=== PATIENT | male | born 1965 | race Caucasian/White ===

== ENCOUNTER 2017-06-17 09:47 | Inpatient (IN) | payer MEDICARE, MEDICAID ==
[2017-06-17 10:34] LABS: pH 7.45 (7.35-7.45)
--- NOTE | 2017-06-17 10:39 | ED Physician Chart ---
ED Chief Complaint/HPI - Patient Information Date Seen:: 06/17/17 Time Seen:: 10:00 Chief Complaint:: shortness of breath History of Present Illness:: Patient has been short of breath for last 2 years. He had a runny nose and cough about one month ago. . Patient also complains of diffuse myalgia. He is normally on 2 L of oxygen by nasal cannula. Allergies:: Allergies Allergy/AdvReac Type Severity Reaction Status Date / Time No Known Allergies Allergy Verified 06/17/17 10:05 Vitals:: Vital Signs - 8 hr 06/17/17 09:55 Temp 98.1 F HR 102 RR 18 BP 126/97 O2 Sat % 90 Historian:: Patient Review:: Nurse's Note Reviewed ED Review of Systems - Review of Systems General/Constitutional: No fever, No chills Skin: No skin lesions Head: No headache Eyes: No loss of vision ENT: No earache Neck: No neck pain Cardio Vascular: No chest pain, No palpitations Pulmonary: SOB GI: No nausea, No vomiting, No diarrhea G/U: No dysuria, No hematuria Musculoskeletal: No bone or joint pain Endocrine: No polyuria Psychiatric: Prior psych history Hematopoietic: No bruising Allergic/Immuno: No urticaria Neurological: No syncope, No focal symptoms ED Past Medical History - Past Medical History Past Medical History: Other (schizophrenia) Family History: None Social History: Other (quit smoking about 10 years ago) Surgical History: other (colostomy and colostomy reversal) Psychiatricy History: Schizophrenia Medication: Reviewed Family Medical History - Family Member Mother History Unknown: Yes ED Labs/Radiology/EKG Results - Lab Results Results: Laboratory Results - last 24 hr 06/17/17 06/17/17 10:25 10:52 WBC 8.9 RBC 4.93 Hgb 16.9 Hct 49.3 MCV 100.0 H MCH 34.4 H MCHC Differential 34.3 RDW 12.0 Plt Count 169 MPV 7.2 Neutrophils % 81.4 H Lymphocytes % 12.3 L Monocytes % 5.8 Eosinophils % 0.5 Basophils % 0.0 Specimen Source Arterial Sample Site RB pH 7.45 pCO2 46.0 H pO2 52.0 L HCO3 30.2 H Base Excess 7.0 H O2 Saturation 88.0 L Talib Test NA Vent Rate NA Inspired O2 21 Tidal Volume NA PEEP NA Pressure (ins/psv/peep) NA Critical Value E.CHPAIN - Radiology Results Comments:: Chest x-ray showed COPD; no infiltrate - EKG Interpretations Rate & Rhythm: normal sinus rhythm; rate 81; baseline artifact ED Septic Shock - . Is Septic Shock (SBP<90, OR Lactate>4 mmol\L) present?: No - <6hrs of presentation: Vital Signs: Vital Signs - 8 hr 06/17/17 09:55 Temp 98.1 F HR 102 RR 18 BP 126/97 O2 Sat % 90 ED Reassessment (Disposition) - Reassessment Reassessment Condition:: Unchanged - Diagnosis Diagnosis:: COPD; schizophrenia; hypoxemia - Patient Disposition Admitted to:: Med/Surg Spoke to:: Jatin Wynne Admitting Medical Physician:: Jatin Wynne Condition at Disposition:: Stable, Unchanged
[2017-06-17 11:02] LABS: % EOSINOPHILS 0.5 % (0.0-5.0); % LYMPHOCYTES 12.3 % (20.0-50.0); % MONOCYTES 5.8 % (2.0-10.0); % NEUTROPHILS 81.4 % (40.0-80.0); HEMATOCRIT 49.3 % (41.0-60); HEMOGLOBIN 16.9 gm/dL (12-16); LYMPHOCYTE ABSOLUTE 1.1 Th/cmm (1.5-3.0); MEAN CORPUSCULAR HEMOGLOBIN 34.4 pg (26.0-30.0); MEAN CORPUSCULAR HGB CONC 34.3 pg (28.0-36.0); MEAN PLATELET VOLUME 7.2 fl; MONOCYTE ABSOLUTE 0.5 Th/cmm (0.3-1.0); NEUTROPHILE ABSOLUTE 7.3 Th/cmm (1.8-8.0); PLATELET COUNT 169 Th/cmm (150-400); RED BLOOD COUNT 4.93 Mil/cmm (4.30-5.70); WHITE BLOOD COUNT 8.9 Th/cmm (4.8-10.8)
[2017-06-17 11:18] LABS: ANION GAP 8.8 (7.0-16.0); BUN - UREA NITROGEN 8 mg/dL (7-25); CARBON DIOXIDE 28.8 mEq/L (21.0-31.0); CHLORIDE 102 mEq/L (98-107); CREATININE - SERUM 0.7 mg/dL (0.7-1.3); GFR AFRICAN-AMERICAN > 60.0 ml/min (>90); GFR NON AFRICAN-AMERICAN > 60.0 ml/min; GLUCOSE 94 mg/dL (70-105); MAGNESIUM 2.3 mg/dL (1.9-2.7); POTASSIUM SERUM 4.6 mEq/L (3.5-5.1); SODIUM SERUM 135 mEq/L (136-145)
--- NOTE | 2017-06-17 12:22 | Diagnostic Imaging Report ---
CHEST X-RAY: AP view INDICATION: Shortness of breath COMPARISON: None FINDINGS: Diffuse chronic emphysematous lung changes are seen with increased left basal lung markings. Heart size is normal. No focal consolidation or effusions. Chronic right lower rib fracture is noted. IMPRESSION: Diffuse chronic emphysematous lung changes. Increased left basal lung markings are seen favoring area of atelectasis or scarring. Faint infiltrate is considered less likely. Please correlate with patient's clinical findings.
[2017-06-17] MEDS ORDERED: Acetaminophen 500 MG TAB PO ONE (12:45)
[2017-06-17] MEDS ORDERED: Acetaminophen 500 MG TAB ONE (13:01)
[2017-06-17] MEDS: Albuterol/Ipratropium Neb 3 ML AERS HHN SCH ×2 (15:09→19:31)
[2017-06-17] MEDS ORDERED: Pneumococcal Vaccine 0.5 mL Vial IM ONE (17:19)
[2017-06-17] MEDS ORDERED: Albuterol/Ipratropium Neb 3 ML AERS HHN PRN (20:09)
[2017-06-17] MEDS: methylPREDNISolone SS 40 mg Vial IV SCH (23:07)
[2017-06-17] MEDS: Levofloxacin 500mg/100mL 500 MG/100 ML BAG IV SCH (23:13)
--- NOTE | 2017-06-17 23:19 | History & Physical ---
ADMIT DATE: PATIENT IDENTIFICATION: A 52-year-old male. CHIEF COMPLAINT: Shortness of breath. HISTORY OF PRESENT ILLNESS: A 52-year-old male with history of COPD, bronchiectasis, history of psychotic disorder, still smokes, presented to Emergency Room for evaluation of shortness of breath for last one week. The patient was recently seen by Emergency Room MD at [facility]. The patient was given prednisone and inhalation therapy and antibiotic, but according to the patient, he did not get better, continuation of worsening shortness of breath, so he came to this Emergency Room. When the patient was by Emergency Room MD, patient was noted to have low pO2 and elevated CO2. The patient was advised to be admitted to the hospital for further treatment since the patient has failed outpatient treatment. PAST MEDICAL HISTORY: Remarkable for, 1. COPD. 2. Bronchiectasis. 3. DJD. MEDICATIONS: List has been reviewed and reconciled appropriately. ALLERGIES: The patient is not allergic to medication. SOCIAL HISTORY: The patient lives in [facility]. The patient has a history of smoking cigarette. No alcohol or drug use. FAMILY MEDICAL HISTORY: Remarkable for hypertension. REVIEW OF SYSTEMS: The patient currently denies any headache, blurred vision, double vision, dysphagia, odynophagia, runny nose, stuffy nose, fever, chills, cough. Denies any hematemesis. Denies any abdominal pain. Denies any seizure or syncopal episode. Denies any weight loss or weight gain. PHYSICAL EXAMINATION: GENERAL: Alert, oriented, lying in the bed without any acute distress. VITAL SIGNS: Temperature 98.1, pulse is 102, respiratory rate 20, blood pressure 126/97. HEENT: Normocephalic, atraumatic. Extraocular muscles intact. Tongue was pink and coated. Oropharynx is congested. Nasal mucosa congested. NECK: Supple. No JVD, no hepatojugular reflex, no lymphadenopathy, thyromegaly, or carotid bruit. HEART: Both heart sounds are regular. No S3, no S4. CHEST AND LUNGS: Equal in expansion with expiratory wheezing throughout. ABDOMEN: Soft. No guarding, no rigidity. Liver, spleen palpable. No palpable mass. EXTREMITIES: No edema, cyanosis or clubbing. Pulses are +2. No calf tenderness noted. NEUROLOGIC: Nonfocal. AVAILABLE DIAGNOSTIC DATA: Remarkable for pH of 7.45, pCO2 of 46, pO2 of 52, of 88%. White count of 8.9, hemoglobin 16.9, platelet count of 169. Electrolytes are within normal limit. Magnesium of 2.3. Chest x-ray, no infiltrate, no congestion. CLINICAL IMPRESSION: 1. Acute respiratory failure. 2. Chronic obstructive pulmonary disease exacerbation. 3. Bronchiectasis. 4. Psychotic disorder. PLAN: 1. Admit this patient to Med/Surg floor. 2. Oxygen. 3. IV steroid. 4. IV antibiotic. 5. Inhalation therapy. 6. Appropriate home medicine reconciliation. 7. General Pulmonary consult. 8. General nursing care. 9. Follow lab. 10. Follow management consultant's recommendation. 11. 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 JOB# [id number]
[2017-06-18] MEDS: Albuterol/Ipratropium Neb 3 ML AERS HHN SCH ×4 (01:00→19:41)
[2017-06-18] MEDS: Hydrocodone/APAP 5mg/325mg Tab PO PRN ×3 (02:02→20:51)
[2017-06-18] MEDS: methylPREDNISolone SS 40 mg Vial IV SCH ×3 (04:40→20:50)
[2017-06-18 05:31] LABS: HEMATOCRIT 45.4 % (41.0-60); HEMOGLOBIN 15.6 gm/dL (12-16); LYMPHOCYTE ABSOLUTE 0.4 Th/cmm (1.5-3.0); MEAN CELL VOLUME 100.2 fl (80-99); MEAN CORPUSCULAR HEMOGLOBIN 34.3 pg (26.0-30.0); MEAN CORPUSCULAR HGB CONC 34.3 pg (28.0-36.0); MEAN PLATELET VOLUME 7.7 fl; MONOCYTE ABSOLUTE 0.1 Th/cmm (0.3-1.0); NEUTROPHILE ABSOLUTE 5.6 Th/cmm (1.8-8.0); PLATELET COUNT 139 Th/cmm (150-400); RED BLOOD COUNT 4.53 Mil/cmm (4.30-5.70); RED CELL DISTRIBUTION WIDTH 12.5 % (11.5-20.0)
[2017-06-18 05:33] LABS: WHITE BLOOD COUNT 6.1 Th/cmm (4.8-10.8)
[2017-06-18 05:51] LABS: ALB/GLOB RATIO 1.4 (1.0-1.8); ALBUMIN 3.6 gm/dL (4.2-5.5); ALKALINE PHOSPHATASE 56 U/L (34-104); ANION GAP 10.3 (7.0-16.0); BILIRUBIN,TOTAL 0.7 mg/dL (0.3-1.0); BUN - UREA NITROGEN 13 mg/dL (7-25); CALCIUM SERUM 9.3 mg/dL (8.6-10.3); CARBON DIOXIDE 28.2 mEq/L (21.0-31.0); CHLORIDE 105 mEq/L (98-107); CREATININE - SERUM 0.8 mg/dL (0.7-1.3); GFR AFRICAN-AMERICAN > 60.0 ml/min (>90); GFR NON AFRICAN-AMERICAN > 60.0 ml/min; GLUCOSE 126 mg/dL (70-105); POTASSIUM SERUM 4.5 mEq/L (3.5-5.1); SGOT 25 U/L (13-39); SGPT/ALT 20 U/L (7-52); SODIUM SERUM 139 mEq/L (136-145); TOTAL PROTEIN,SERUM 6.1 gm/dL (6.0-8.3)
[2017-06-18] MEDS: Benztropine 1 MG TAB PO SCH ×2 (09:21→16:32)
--- NOTE | 2017-06-18 18:41 | General Progress Note ---
Subjective - Review of Systems Subjective: Patient is seen and examined. Patient still has a cough and shortness of breath. Patient denies any chest pain, abdominal pain, nausea, vomiting, headache. Objective - Results Result Diagrams: 06/18/17 04:50 06/18/17 04:50 Recent Labs: Laboratory Last Values WBC 6.1 Th/cmm (4.8-10.8) D 06/18/17 04:50 RBC 4.53 Mil/cmm (4.30-5.70) 06/18/17 04:50 Hgb 15.6 gm/dL (-16) 06/18/17 04:50 Hct 45.4 % (41.0-60) 06/18/17 04:50 MCV 100.2 fl (80-99) H 06/18/17 04:50 MCH 34.3 pg (26.0-30.0) H 06/18/17 04:50 MCHC Differential 34.3 pg (28.0-36.0) 06/18/17 04:50 RDW 12.5 % (11.5-20.0) 06/18/17 04:50 Plt Count 139 Th/cmm (150-400) L 06/18/17 04:50 MPV 7.7 fl 06/18/17 04:50 Neutrophils % 81.4 % (40.0-80.0) H 06/17/17 10:52 Lymphocytes % 12.3 % (20.0-50.0) L 06/17/17 10:52 Monocytes % 5.8 % (2.0-10.0) 06/17/17 10:52 Eosinophils % 0.5 % (0.0-5.0) 06/17/17 10:52 Basophils % 0.0 % (0.0-2.0) 06/17/17 10:52 Specimen Source Arterial 06/17/17 10:25 Sample Site RB 06/17/17 10:25 pH 7.45 (7.35-7.45) 06/17/17 10:25 pCO2 46.0 mmHg (35.0-45.0) H 06/17/17 10:25 pO2 52.0 mmHg (80.0-100.0) L 06/17/17 10:25 HCO3 30.2 mEq/L (20.0-26.0) H 06/17/17 10:25 Base Excess 7.0 mEq/L (-3.0-3.0) H 06/17/17 10:25 O2 Saturation 88.0 % (92.0-100.0) L 06/17/17 10:25 Talib Test NA 06/17/17 10:25 Vent Rate NA 06/17/17 10:25 Inspired O2 21 06/17/17 10:25 Tidal Volume NA 06/17/17 10:25 PEEP NA 06/17/17 10:25 Pressure (ins/psv/peep) NA 06/17/17 10:25 Critical Value E.CHAPIN 06/17/17 10:25 Sodium 139 mEq/L (136-145) 06/18/17 04:50 Potassium 4.5 mEq/L (3.5-5.1) 06/18/17 04:50 Chloride 105 mEq/L (98-107) 06/18/17 04:50 Carbon Dioxide 28.2 mEq/L (21.0-31.0) 06/18/17 04:50 Anion Gap 10.3 (7.0-16.0) 06/18/17 04:50 BUN 13 mg/dL (7-25) 06/18/17 04:50 Creatinine 0.8 mg/dL (0.7-1.3) 06/18/17 04:50 Est GFR ( Amer) > 60.0 ml/min (>90) 06/18/17 04:50 Est GFR (Non-Af Amer) > 60.0 ml/min 06/18/17 04:50 BUN/Creatinine Ratio 16.3 06/18/17 04:50 Glucose 126 mg/dL (70-105) H 06/18/17 04:50 Calcium 9.3 mg/dL (8.6-10.3) 06/18/17 04:50 Magnesium 2.0 mg/dL (1.9-2.7) 06/18/17 04:50 Total Bilirubin 0.7 mg/dL (0.3-1.0) 06/18/17 04:50 AST 25 U/L (13-39) 06/18/17 04:50 ALT 20 U/L (7-52) 06/18/17 04:50 Alkaline Phosphatase 56 U/L (34-104) 06/18/17 04:50 Total Protein 6.1 gm/dL (6.0-8.3) 06/18/17 04:50 Albumin 3.6 gm/dL (4.2-5.5) L 06/18/17 04:50 Globulin 2.5 gm/dL 06/18/17 04:50 Albumin/Globulin Ratio 1.4 (1.0-1.8) 06/18/17 04:50 - Physical Exam Vitals and I&O: Vital Signs Temp 98.6 F 06/18/17 16:00 Pulse 79 06/18/17 16:00 Resp 20 06/18/17 16:00 BP 116/68 06/18/17 16:00 Pulse Ox 99 06/18/17 16:00 Intake & Output 06/17/17 06/18/17 06/18/17 18:59 06:59 18:59 Intake Total 600 Balance 600 Weight (lbs) 102.512 kg 102.512 kg Intake: Oral 600 Other: # Voids 4 # Bowel Movements 0 Active Medications: Current Medications Acetaminophen/Hydrocodone Bitart ([place] 5mg/325mg) 1 tab PO Q6H PRN PRN Reason: Pain (Moderate) Stop: 08/17/17 00:57 Last Admin: 06/18/17 12:36 Dose: 1 tab Albuterol/Ipratropium (Duoneb Neb) 3 ml HHN Q6HRT [facility] Stop: 08/16/17 13:32 Last Admin: 06/18/17 12:31 Dose: 3 ml Albuterol/Ipratropium (Duoneb Neb) 3 ml HHN Q2H PRN PRN Reason: Wheezing Stop: 08/16/17 20:08 Aspirin (Ecotrin) 81 mg PO DAILY MI Stop: 08/17/17 08:59 Last Admin: 06/18/17 09:21 Dose: 81 mg Benztropine Mesylate (Cogentin) 1 mg PO BID MI Stop: 08/17/17 08:59 Last Admin: 06/18/17 16:32 Dose: 1 mg Diphenhydramine HCl (Benadryl) 25 mg PO HS MI Stop: 08/16/17 20:59 Last Admin: 06/17/17 23:09 Dose: 25 mg Levofloxacin (Levaquin Pb) 500 mg in 100 mls @ 100 mls/hr IV Q24HR MI Stop: 08/16/17 20:59 Last Admin: 06/17/17 23:13 Dose: 100 mls/hr Methylprednisolone Sodium Succinate (Solu-Medrol) 40 mg IV Q8HR MI Stop: 08/16/17 20:59 Last Admin: 06/18/17 12:36 Dose: 40 mg Olanzapine (Zyprexa) 20 mg PO HS MI PRN Reason: Protocol Stop: 08/16/17 20:59 Thiothixene (Navane) 5 mg PO BID MI PRN Reason: Protocol Stop: 08/17/17 08:59 General: Alert, Oriented x3, Cooperative HEENT: Atraumatic, PERRLA, EOMI, Mucous membr. moist/pink Neck: Supple, +2 carotid pulse wo bruit Cardiovascular: Regular rate, Normal S1, Normal S2 Lungs: Other (diffuse expiratory wheezing throughout.) Abdomen: Bowel sounds, Soft, Other (no hepatosplenomegaly, bowel sounds present) Extremities: Other (no clubbing, cyanosis, pedal pulses are +2.) Neurological: Normal gait Assessment/Plan - Assessment Assessment: COPD exacerbation. Acute respiratory failure. Bronchiectasis. Psychiatric disorder. DJD. Debility. - Plan Plan: Oxygen. Nebulizer treatment. IV antibiotic. IV steroid. General nursing care. Pulmonary follow-up. Psych medication. Nutritional support. PTOT. Follow lab. Follow corporate health consultant's recommendation. Care plan reviewed and discussed with staff.
[2017-06-18] MEDS: Levofloxacin 500mg/100mL 500 MG/100 ML BAG IV SCH (20:49)
[2017-06-19] MEDS: Albuterol/Ipratropium Neb 3 ML AERS HHN SCH ×4 (01:16→20:06)
[2017-06-19] MEDS: methylPREDNISolone SS 40 mg Vial IV SCH ×3 (05:19→22:07)
[2017-06-19] MEDS: Benztropine 1 MG TAB PO SCH ×2 (09:03→17:05)
[2017-06-19] MEDS: Hydrocodone/APAP 5mg/325mg Tab PO PRN ×2 (09:55→17:05)
[2017-06-19] MEDS ORDERED: Probiotic Screen MC PRN (12:11)
--- NOTE | 2017-06-19 16:02 | General Progress Note ---
Subjective - Review of Systems Subjective: Patient is seen and examined. Patient says I feel better today. Patient denies any chest pain, abdominal pain, nausea, vomiting, headache. Objective - Results Result Diagrams: 06/18/17 04:50 06/18/17 04:50 Recent Labs: Laboratory Last Values WBC 6.1 Th/cmm (4.8-10.8) D 06/18/17 04:50 RBC 4.53 Mil/cmm (4.30-5.70) 06/18/17 04:50 Hgb 15.6 gm/dL (-16) 06/18/17 04:50 Hct 45.4 % (41.0-60) 06/18/17 04:50 MCV 100.2 fl (80-99) H 06/18/17 04:50 MCH 34.3 pg (26.0-30.0) H 06/18/17 04:50 MCHC Differential 34.3 pg (28.0-36.0) 06/18/17 04:50 RDW 12.5 % (11.5-20.0) 06/18/17 04:50 Plt Count 139 Th/cmm (150-400) L 06/18/17 04:50 MPV 7.7 fl 06/18/17 04:50 Neutrophils % 81.4 % (40.0-80.0) H 06/17/17 10:52 Lymphocytes % 12.3 % (20.0-50.0) L 06/17/17 10:52 Monocytes % 5.8 % (2.0-10.0) 06/17/17 10:52 Eosinophils % 0.5 % (0.0-5.0) 06/17/17 10:52 Basophils % 0.0 % (0.0-2.0) 06/17/17 10:52 Specimen Source Arterial 06/17/17 10:25 Sample Site RB 06/17/17 10:25 pH 7.45 (7.35-7.45) 06/17/17 10:25 pCO2 46.0 mmHg (35.0-45.0) H 06/17/17 10:25 pO2 52.0 mmHg (80.0-100.0) L 06/17/17 10:25 HCO3 30.2 mEq/L (20.0-26.0) H 06/17/17 10:25 Base Excess 7.0 mEq/L (-3.0-3.0) H 06/17/17 10:25 O2 Saturation 88.0 % (92.0-100.0) L 06/17/17 10:25 Talib Test NA 06/17/17 10:25 Vent Rate NA 06/17/17 10:25 Inspired O2 21 06/17/17 10:25 Tidal Volume NA 06/17/17 10:25 PEEP NA 06/17/17 10:25 Pressure (ins/psv/peep) NA 06/17/17 10:25 Critical Value E.CHAPIN 06/17/17 10:25 Sodium 139 mEq/L (136-145) 06/18/17 04:50 Potassium 4.5 mEq/L (3.5-5.1) 06/18/17 04:50 Chloride 105 mEq/L (98-107) 06/18/17 04:50 Carbon Dioxide 28.2 mEq/L (21.0-31.0) 06/18/17 04:50 Anion Gap 10.3 (7.0-16.0) 06/18/17 04:50 BUN 13 mg/dL (7-25) 06/18/17 04:50 Creatinine 0.8 mg/dL (0.7-1.3) 06/18/17 04:50 Est GFR ( Amer) > 60.0 ml/min (>90) 06/18/17 04:50 Est GFR (Non-Af Amer) > 60.0 ml/min 06/18/17 04:50 BUN/Creatinine Ratio 16.3 06/18/17 04:50 Glucose 126 mg/dL (70-105) H 06/18/17 04:50 Calcium 9.3 mg/dL (8.6-10.3) 06/18/17 04:50 Magnesium 2.0 mg/dL (1.9-2.7) 06/18/17 04:50 Total Bilirubin 0.7 mg/dL (0.3-1.0) 06/18/17 04:50 AST 25 U/L (13-39) 06/18/17 04:50 ALT 20 U/L (7-52) 06/18/17 04:50 Alkaline Phosphatase 56 U/L (34-104) 06/18/17 04:50 Total Protein 6.1 gm/dL (6.0-8.3) 06/18/17 04:50 Albumin 3.6 gm/dL (4.2-5.5) L 06/18/17 04:50 Globulin 2.5 gm/dL 06/18/17 04:50 Albumin/Globulin Ratio 1.4 (1.0-1.8) 06/18/17 04:50 - Physical Exam Vitals and I&O: Vital Signs Temp 98.7 F 06/19/17 15:39 Pulse 71 06/19/17 15:39 Resp 18 06/19/17 15:39 BP 106/64 06/19/17 15:39 Pulse Ox 91 06/19/17 15:39 Intake & Output 06/18/17 06/19/17 06/19/17 18:59 06:59 18:59 Intake Total 600 660 Balance 600 660 Weight (lbs) 102.512 kg 102.512 kg Intake: Intake, IV Amount 100 Levofloxacin 500mg/100mL 100 500 mg In 100 ml @ 100 mls/hr IV Q24HR [facility] Rx#: [id number] Oral 600 560 Other: # Voids 4 850 # Bowel Movements 0 Active Medications: Current Medications Acetaminophen/Hydrocodone Bitart ([place] 5mg/325mg) 1 tab PO Q6H PRN PRN Reason: Pain (Moderate) Stop: 08/17/17 00:57 Last Admin: 06/19/17 09:55 Dose: 1 tab Albuterol/Ipratropium (Duoneb Neb) 3 ml HHN Q6HRT [facility] Stop: 08/16/17 13:32 Last Admin: 06/19/17 12:59 Dose: 3 ml Albuterol/Ipratropium (Duoneb Neb) 3 ml HHN Q2H PRN PRN Reason: Wheezing Stop: 08/16/17 20:08 Aspirin (Ecotrin) 81 mg PO DAILY [facility] Stop: 08/17/17 08:59 Last Admin: 06/19/17 09:03 Dose: 81 mg Benztropine Mesylate (Cogentin) 1 mg PO BID MI Stop: 08/17/17 08:59 Last Admin: 06/19/17 09:03 Dose: 1 mg Diphenhydramine HCl (Benadryl) 25 mg PO HS [facility] Stop: 08/16/17 20:59 Last Admin: 06/18/17 20:51 Dose: 25 mg Levofloxacin (Levaquin Pb) 500 mg in 100 mls @ 100 mls/hr IV Q24HR MI Stop: 08/16/17 20:59 Last Infusion: 06/18/17 21:49 Dose: Infused Methylprednisolone Sodium Succinate (Solu-Medrol) 40 mg IV Q8HR MI Stop: 08/16/17 20:59 Last Admin: 06/19/17 14:10 Dose: 40 mg Miscellaneous (Probiotic Screen) 1 ea MC PRN PRN PRN Reason: PROTOCOL Stop: 08/18/17 12:10 Olanzapine (Zyprexa) 20 mg PO HS MI PRN Reason: Protocol Stop: 08/16/17 20:59 Thiothixene (Navane) 15 mg PO BID MI PRN Reason: Protocol Stop: 08/17/17 08:59 Last Admin: 06/19/17 09:56 Dose: Not Given General: Alert, Oriented x3, Cooperative HEENT: Atraumatic, PERRLA, EOMI, Mucous membr. moist/pink Neck: Supple, +2 carotid pulse wo bruit Cardiovascular: Regular rate, Normal S1, Normal S2 Lungs: Other (diffuse expiratory wheezing throughout.) Abdomen: Bowel sounds, Soft, Other (no hepatosplenomegaly, bowel sounds present) Extremities: Other (no clubbing, cyanosis, pedal pulses are +2.) Neurological: Normal gait Assessment/Plan - Assessment Assessment: COPD exacerbation. Acute respiratory failure. Bronchiectasis. Psychiatric disorder. DJD. Debility. - Plan Plan: Oxygen. Nebulizer treatment. IV antibiotic. Decrease IV steroid. General nursing care. Pulmonary follow-up. Psych medication. Nutritional support. PT. Follow lab. Follow devops consultant's recommendation. Care plan reviewed and discussed with staff.
[2017-06-19] MEDS: Pantoprazole 40 mg EC Tab PO SCH (18:12)
[2017-06-19 19:56] LABS: INF A SCREEN NEG FOR INF A; INF B SCREEN NEG FOR INF B
[2017-06-19] MEDS: Budesonide 0.5 Mg/2 mL Ud HHN SCH (20:06)
--- NOTE | 2017-06-19 20:42 | Consultation ---
DATE OF CONSULTATION: 06/19/2017 PULMONARY AND CRITICAL CARE CONSULTATION NOTE REASON FOR CONSULTATION: Shortness of breath. CONSULT NOTE: This is a 52-year-old gentleman who has multiple psychiatric illness as well as under multiple psychotropic medications. The patient was basically admitted here because of increasingly shortness of breath, coughing, and wheezing and lasted a few days prior to coming to the hospital. Initially, he has been to the other Emergency Room and the patient was given prednisone. As the patient's symptomatology continued and did not get better, he decided to come to the Emergency Room. The patient has some cough, some wheezing, and some mucus production discolored. No pleuritic chest pain, no swelling of the legs, otherwise unremarkable. The patient says he is not smoking since last 6 months. PAST MEDICAL HISTORY: 1. History of COPD. 2. History of question bronchiectasis. 3. DJD. 4. Possibly to underlying psychiatric illness. ALLERGIC HISTORY: Nil. SOCIAL HISTORY: The patient lives in [facility] and claims to have stopped smoking. Denies of any illicit drug use. PHYSICAL EXAMINATION: GENERAL: This is a tall looking gentleman, awake, alert, oriented, not in any acute distress. VITAL SIGNS: The patient's recorded vitals: Temperature is 98, blood pressure is 111/67, and saturation is 90s on 2 liters. HEENT: Examination of the head is essentially unremarkable. Pupils appear to be equal and reactive to light. Conjunctivae are slightly pallor. Oral cavity, limited exam, but unremarkable and appreciative partial dental plate. Throat shows small oropharyngeal opening. NECK: Unremarkable. No palpable nodes in the neck could be palpated. CHEST: Shows diminished air entry with scattered wheezing. HEART: Regular. ABDOMEN: Soft, nontender. DIAGNOSTIC AND LABORATORY DATA: The patient's chest x-ray shows some interstitial changes with left basal scarring versus questionable pneumonia. White count is 8.1. MCV is 100. ABG shows pCO2 of 46, pO2 is 52 on room air. Electrolytes are okay. IMPRESSION: 1. The patient has acute exacerbation of chronic bronchitis with chronic obstructive pulmonary disease. Precipitating factor is not clear, possibly viral and/or bacterial cannot be ruled out. 2. Underlying history of smoking. According to him, has not smoked for last 6 months and also the patient is mentally challenged issues with disability. PLANS AND SUGGESTIONS: We will go ahead and continue antibiotic inhalation treatment. We will recheck out influenza titer. We will add inhale steroid. We will get a CT of the chest for better evaluation of his disease and go from there and we will followup blood gases as well. JOB# [id number]
[2017-06-19] MEDS: Levofloxacin 500mg/100mL 500 MG/100 ML BAG IV SCH (22:06)
[2017-06-20 05:36] LABS: % BASOPHILS 2.2 % (0.0-2.0); % LYMPHOCYTES 6.6 % (20.0-50.0); % MONOCYTES 2.8 % (2.0-10.0); % NEUTROPHILS 88.4 % (40.0-80.0); BASOPHILE ABSOLUTE 0.2 Th/cumm (0-0.2); HEMATOCRIT 49.1 % (41.0-60); HEMOGLOBIN 16.7 gm/dL (12-16); LYMPHOCYTE ABSOLUTE 0.6 Th/cmm (1.5-3.0); MEAN CORPUSCULAR HEMOGLOBIN 34.3 pg (26.0-30.0); MEAN CORPUSCULAR HGB CONC 33.9 pg (28.0-36.0); MEAN PLATELET VOLUME 7.6 fl; MONOCYTE ABSOLUTE 0.3 Th/cmm (0.3-1.0); NEUTROPHILE ABSOLUTE 8.2 Th/cmm (1.8-8.0); PLATELET COUNT 149 Th/cmm (150-400); RED BLOOD COUNT 4.86 Mil/cmm (4.30-5.70); RED CELL DISTRIBUTION WIDTH 12.5 % (11.5-20.0)
[2017-06-20 05:38] LABS: WHITE BLOOD COUNT 9.3 Th/cmm (4.8-10.8)
[2017-06-20] MEDS: Hydrocodone/APAP 5mg/325mg Tab PO PRN ×3 (05:55→22:42)
[2017-06-20 06:50] LABS: ALB/GLOB RATIO 1.4 (1.0-1.8); ALBUMIN 3.6 gm/dL (4.2-5.5); ALKALINE PHOSPHATASE 57 U/L (34-104); ANION GAP 9.9 (7.0-16.0); BILIRUBIN,TOTAL 0.7 mg/dL (0.3-1.0); BUN - UREA NITROGEN 16 mg/dL (7-25); CALCIUM SERUM 9.3 mg/dL (8.6-10.3); CARBON DIOXIDE 26.5 mEq/L (21.0-31.0); CHLORIDE 103 mEq/L (98-107); CREATININE - SERUM 0.7 mg/dL (0.7-1.3); GFR AFRICAN-AMERICAN > 60.0 ml/min (>90); GFR NON AFRICAN-AMERICAN > 60.0 ml/min; GLUCOSE 141 mg/dL (70-105); POTASSIUM SERUM 4.4 mEq/L (3.5-5.1); SGOT 20 U/L (13-39); SGPT/ALT 22 U/L (7-52); SODIUM SERUM 135 mEq/L (136-145); TOTAL PROTEIN,SERUM 6.2 gm/dL (6.0-8.3)
[2017-06-20] MEDS: Albuterol/Ipratropium Neb 3 ML AERS HHN SCH ×4 (07:44→19:07)
[2017-06-20] MEDS: Budesonide 0.5 Mg/2 mL Ud HHN SCH ×2 (07:44→19:07)
[2017-06-20] MEDS: methylPREDNISolone SS 40 mg Vial IV SCH ×2 (09:15→17:14)
[2017-06-20] MEDS: Benztropine 1 MG TAB PO SCH ×2 (09:15→17:14)
[2017-06-20] MEDS: Pantoprazole 40 mg EC Tab PO SCH (09:15)
[2017-06-20 09:17] LABS: ALLEN TEST Positive; pH 7.41 (7.35-7.45)
--- NOTE | 2017-06-20 10:00 | Diagnostic Imaging Report ---
CT Chest without IV contrast HISTORY: COPD, fibrosis, pneumonia COMPARISON: Chest x-ray on 06/17/2017. Technique: Axial images were obtained from the base of the neck to the upper abdomen without IV contrast. Reconstructions were made. Total DLP 3:30, CTD I 6.9 Findings: Evaluation of the mediastinum is limited due to lack of IV contrast. No evidence of mediastinal lymphadenopathy. The heart size is normal. Mild atelectatic vascular disease noted. No pericardial effusion. Hyperinflated lungs are seen with diffuse emphysematous changes throughout the lungs. Linear densities of the lung bases are seen suggestive of atelectatic changes. Additional right basal patchy infiltrates are noted. There is also 8 mm nodular density involving the left lower lobe (image 41, series 2 and image 79, series 5). There is also an additional fat density with focal consolidative change of the left lung base. The upper abdomen demonstrates a distended stomach. Calcifications versus postsurgical changes of the left upper quadrant are noted. Mild degenerative changes of the spine are noted. IMPRESSION: Hyperinflated lungs with diffuse emphysematous changes throughout the lungs. Right basal infiltrates are also noted. Nodular infiltrates of the lung bases are noted including 8 mm nodule of the left lower lobe which may be due to infectious/inflammatory or neoplastic process. Please correlate with findings of normal exams. Short-term follow-up CT surveillance in 3-6 months is recommended for further assessment. Additional focal area of fat possible fat diaphragmatic herniation with focal consolidative changes of the left lung base. Mild atherosclerotic vascular disease.
--- NOTE | 2017-06-20 17:08 | General Progress Note ---
Subjective - Review of Systems Subjective: Patient is seen and examined.Patient denies any chest pain, abdominal pain, nausea, vomiting, headache. Objective - Results Result Diagrams: 06/20/17 04:53 06/20/17 04:53 Recent Labs: Laboratory Last Values WBC 9.3 Th/cmm (4.8-10.8) D 06/20/17 04:53 RBC 4.86 Mil/cmm (4.30-5.70) 06/20/17 04:53 Hgb 16.7 gm/dL (12-16) 06/20/17 04:53 Hct 49.1 % (41.0-60) 06/20/17 04:53 MCV 101.0 fl (80-99) H 06/20/17 04:53 MCH 34.3 pg (26.0-30.0) H 06/20/17 04:53 MCHC Differential 33.9 pg (28.0-36.0) 06/20/17 04:53 RDW 12.5 % (11.5-20.0) 06/20/17 04:53 Plt Count 149 Th/cmm (150-400) L 06/20/17 04:53 MPV 7.6 fl 06/20/17 04:53 Neutrophils % 88.4 % (40.0-80.0) H 06/20/17 04:53 Lymphocytes % 6.6 % (20.0-50.0) L 06/20/17 04:53 Monocytes % 2.8 % (2.0-10.0) 06/20/17 04:53 Eosinophils % 0.0 % (0.0-5.0) 06/20/17 04:53 Basophils % 2.2 % (0.0-2.0) H 06/20/17 04:53 Specimen Source Arterial 06/20/17 09:03 Sample Site Left Radial 06/20/17 09:03 pH 7.41 (7.35-7.45) 06/20/17 09:03 pCO2 47.0 mmHg (35.0-45.0) H 06/20/17 09:03 pO2 53.0 mmHg (80.0-100.0) L 06/20/17 09:03 HCO3 28.0 mEq/L (20.0-26.0) H 06/20/17 09:03 Base Excess 4.3 mEq/L (-3.0-3.0) H 06/20/17 09:03 O2 Saturation 87.0 % (92.0-100.0) L 06/20/17 09:03 Talib Test Positive 06/20/17 09:03 Vent Rate NA 06/20/17 09:03 Inspired O2 21 06/20/17 09:03 Tidal Volume NA 06/20/17 09:03 PEEP NA 06/20/17 09:03 Pressure (ins/psv/peep) NA 06/20/17 09:03 Critical Value LZHANG 06/20/17 09:03 Sodium 135 mEq/L (136-145) L 06/20/17 04:53 Potassium 4.4 mEq/L (3.5-5.1) 06/20/17 04:53 Chloride 103 mEq/L (98-107) 06/20/17 04:53 Carbon Dioxide 26.5 mEq/L (21.0-31.0) 06/20/17 04:53 Anion Gap 9.9 (7.0-16.0) 06/20/17 04:53 BUN 16 mg/dL (7-25) 06/20/17 04:53 Creatinine 0.7 mg/dL (0.7-1.3) 06/20/17 04:53 Est GFR ( Amer) > 60.0 ml/min (>90) 06/20/17 04:53 Est GFR (Non-Af Amer) > 60.0 ml/min 06/20/17 04:53 BUN/Creatinine Ratio 22.9 06/20/17 04:53 Glucose 141 mg/dL (70-105) H 06/20/17 04:53 Calcium 9.3 mg/dL (8.6-10.3) 06/20/17 04:53 Magnesium 2.0 mg/dL (1.9-2.7) 06/18/17 04:50 Total Bilirubin 0.7 mg/dL (0.3-1.0) 06/20/17 04:53 AST 20 U/L (13-39) 06/20/17 04:53 ALT 22 U/L (7-52) 06/20/17 04:53 Alkaline Phosphatase 57 U/L (34-104) 06/20/17 04:53 Total Protein 6.2 gm/dL (6.0-8.3) 06/20/17 04:53 Albumin 3.6 gm/dL (4.2-5.5) L 06/20/17 04:53 Globulin 2.6 gm/dL 06/20/17 04:53 Albumin/Globulin Ratio 1.4 (1.0-1.8) 06/20/17 04:53 Influenza A (Rapid) NEG FOR INF A 06/19/17 17:00 Influenza B (Rapid) NEG FOR INF B 06/19/17 17:00 - Physical Exam Vitals and I&O: Vital Signs Temp 98.8 F 06/20/17 16:00 Pulse 67 06/20/17 16:00 Resp 18 06/20/17 16:00 BP 116/81 06/20/17 16:00 Pulse Ox 92 06/20/17 16:00 Intake & Output 06/19/17 06/20/17 06/20/17 18:59 06:59 18:59 Intake Total 1200 350 250 Output Total 1300 Balance -100 350 250 Weight (lbs) 102.512 kg 101.242 kg 110.223 kg Intake: Intake, IV Amount 100 Levofloxacin 500mg/100mL 100 500 mg In 100 ml @ 100 mls/hr IV Q24HR [facility] Rx#: [id number] Oral 1200 250 250 Output: Urine 1300 Other: # Voids 2 # Bowel Movements 0 0 Active Medications: Current Medications Acetaminophen/Hydrocodone Bitart ([place] 5mg/325mg) 1 tab PO Q6H PRN PRN Reason: Pain (Moderate) Stop: 08/17/17 00:57 Last Admin: 06/20/17 12:37 Dose: 1 tab Albuterol/Ipratropium (Duoneb Neb) 3 ml HHN Q2H PRN PRN Reason: Wheezing Stop: 08/16/17 20:08 Albuterol/Ipratropium (Duoneb Neb) 3 ml HHN [id number] [facility] Stop: 08/18/17 18:59 Last Admin: 06/20/17 15:25 Dose: 3 ml Aspirin (Ecotrin) 81 mg PO DAILY [facility] Stop: 08/17/17 08:59 Last Admin: 06/20/17 09:15 Dose: 81 mg Benztropine Mesylate (Cogentin) 1 mg PO BID [facility] Stop: 08/17/17 08:59 Last Admin: 06/20/17 09:15 Dose: 1 mg Budesonide (Pulmicort) 0.5 mg HHN BIDRT MI Stop: 08/18/17 18:59 Last Admin: 06/20/17 07:44 Dose: 0.5 mg Diphenhydramine HCl (Benadryl) 25 mg PO HS MI Stop: 08/16/17 20:59 Last Admin: 06/19/17 22:06 Dose: 25 mg Levofloxacin (Levaquin Pb) 500 mg in 100 mls @ 100 mls/hr IV Q24HR MI Stop: 08/16/17 20:59 Last Infusion: 06/19/17 23:06 Dose: Infused Methylprednisolone Sodium Succinate (Solu-Medrol) 40 mg IV BID MI Stop: 08/18/17 20:59 Last Admin: 06/20/17 09:15 Dose: 40 mg Miscellaneous (Probiotic Screen) 1 ea MC PRN PRN PRN Reason: PROTOCOL Stop: 08/18/17 12:10 Olanzapine (Zyprexa) 20 mg PO HS MI PRN Reason: Protocol Stop: 08/16/17 20:59 Last Admin: 06/19/17 22:06 Dose: 20 mg Pantoprazole Sodium (Protonix) 40 mg PO DAILY [facility] Stop: 08/18/17 17:14 Last Admin: 06/20/17 09:15 Dose: 40 mg Thiothixene (Navane) 15 mg PO BID MI PRN Reason: Protocol Stop: 08/17/17 08:59 Last Admin: 06/20/17 16:59 Dose: Not Given General: Alert, Oriented x3, Cooperative HEENT: Atraumatic, PERRLA, EOMI, Mucous membr. moist/pink Neck: Supple, +2 carotid pulse wo bruit Cardiovascular: Regular rate, Normal S1, Normal S2 Lungs: Other (diffuse expiratory wheezing throughout.) Abdomen: Bowel sounds, Soft, Other (no hepatosplenomegaly, bowel sounds present) Extremities: Other (no clubbing, cyanosis, pedal pulses are +2.) Neurological: Normal gait Assessment/Plan - Assessment Assessment: COPD exacerbation. Acute respiratory failure. Bronchiectasis. Psychiatric disorder. DJD. Debility. - Plan Plan: Oxygen. Nebulizer treatment. IV antibiotic. IV steroid. General nursing care. Pulmonary follow-up. Psych medication. Nutritional support. PT. Follow lab. Follow data warehouse consultant recommendation. Care plan reviewed and discussed with staff.
[2017-06-20] MEDS: Levofloxacin 500mg/100mL 500 MG/100 ML BAG IV SCH (20:25)
--- NOTE | 2017-06-21 02:15 | Progress Notes ---
DATE: 06/20/2017 PULMONARY PROGRESS NOTE PROBLEM LIST: 1. Acute bronchitis. 2. Chronic obstructive pulmonary disease. 3. Questionable pneumonitis, bibasilar probably on the right side than the left. SYMPTOMS: Nil, now able to bring with cough much out, but otherwise not too much symptomatology. Wheezing is much better. PHYSICAL EXAMINATION: VITAL SIGNS: T-max 98.8, blood pressure 116/80, saturation 92 on 2 liters. NECK: Veins not visualized. CHEST: Shows diminished air entry with occasional rhonchi. HEART: Regular. ABDOMEN: Soft, nontender. LABORATORY DATA: The patient's CT shows extensive bullous disease with some bronchiectatic changes, bullous disease in the right base with some scarring. There is also some tenting on the left base as well. The patient's white count is 9.2. ABG shows compensated respiratory acidosis associated with moderate to severe hypoxemia. ASSESSMENT: The patient is clinically stable. PLANS AND SUGGESTIONS: Continue current treatment. Discussed with the patient at length not smoking totally. He may require chronic oxygen therapy down his board and care, as long as he is not smoking that could be arranged and go from there. JOB# [id number]
[2017-06-21] MEDS: Hydrocodone/APAP 5mg/325mg Tab PO PRN ×2 (06:14→12:24)
[2017-06-21] MEDS: Budesonide 0.5 Mg/2 mL Ud HHN SCH (06:47)
[2017-06-21] MEDS: Albuterol/Ipratropium Neb 3 ML AERS HHN SCH ×2 (06:47→11:31)
[2017-06-21] MEDS: Pantoprazole 40 mg EC Tab PO SCH (08:22)
[2017-06-21] MEDS: Benztropine 1 MG TAB PO SCH (08:22)
[2017-06-21] MEDS: methylPREDNISolone SS 40 mg Vial IV SCH (08:22)
--- NOTE | 2017-06-21 09:51 | General Progress Note ---
Subjective - Review of Systems Subjective: Patient is seen and examined. Patient denies any chest pain, abdominal pain, nausea, vomiting, headache. Feeling ok. Objective - Results Result Diagrams: 06/20/17 04:53 06/20/17 04:53 Recent Labs: Laboratory Last Values WBC 9.3 Th/cmm (4.8-10.8) D 06/20/17 04:53 RBC 4.86 Mil/cmm (4.30-5.70) 06/20/17 04:53 Hgb 16.7 gm/dL (12-16) 06/20/17 04:53 Hct 49.1 % (41.0-60) 06/20/17 04:53 MCV 101.0 fl (80-99) H 06/20/17 04:53 MCH 34.3 pg (26.0-30.0) H 06/20/17 04:53 MCHC Differential 33.9 pg (28.0-36.0) 06/20/17 04:53 RDW 12.5 % (11.5-20.0) 06/20/17 04:53 Plt Count 149 Th/cmm (150-400) L 06/20/17 04:53 MPV 7.6 fl 06/20/17 04:53 Neutrophils % 88.4 % (40.0-80.0) H 06/20/17 04:53 Lymphocytes % 6.6 % (20.0-50.0) L 06/20/17 04:53 Monocytes % 2.8 % (2.0-10.0) 06/20/17 04:53 Eosinophils % 0.0 % (0.0-5.0) 06/20/17 04:53 Basophils % 2.2 % (0.0-2.0) H 06/20/17 04:53 Specimen Source Arterial 06/20/17 09:03 Sample Site Left Radial 06/20/17 09:03 pH 7.41 (7.35-7.45) 06/20/17 09:03 pCO2 47.0 mmHg (35.0-45.0) H 06/20/17 09:03 pO2 53.0 mmHg (80.0-100.0) L 06/20/17 09:03 HCO3 28.0 mEq/L (20.0-26.0) H 06/20/17 09:03 Base Excess 4.3 mEq/L (-3.0-3.0) H 06/20/17 09:03 O2 Saturation 87.0 % (92.0-100.0) L 06/20/17 09:03 Talib Test Positive 06/20/17 09:03 Vent Rate NA 06/20/17 09:03 Inspired O2 21 06/20/17 09:03 Tidal Volume NA 06/20/17 09:03 PEEP NA 06/20/17 09:03 Pressure (ins/psv/peep) NA 06/20/17 09:03 Critical Value LZHANG 06/20/17 09:03 Sodium 135 mEq/L (136-145) L 06/20/17 04:53 Potassium 4.4 mEq/L (3.5-5.1) 06/20/17 04:53 Chloride 103 mEq/L (98-107) 06/20/17 04:53 Carbon Dioxide 26.5 mEq/L (21.0-31.0) 06/20/17 04:53 Anion Gap 9.9 (7.0-16.0) 06/20/17 04:53 BUN 16 mg/dL (7-25) 06/20/17 04:53 Creatinine 0.7 mg/dL (0.7-1.3) 06/20/17 04:53 Est GFR ( Amer) > 60.0 ml/min (>90) 06/20/17 04:53 Est GFR (Non-Af Amer) > 60.0 ml/min 06/20/17 04:53 BUN/Creatinine Ratio 22.9 06/20/17 04:53 Glucose 141 mg/dL (70-105) H 06/20/17 04:53 Calcium 9.3 mg/dL (8.6-10.3) 06/20/17 04:53 Magnesium 2.0 mg/dL (1.9-2.7) 06/18/17 04:50 Total Bilirubin 0.7 mg/dL (0.3-1.0) 06/20/17 04:53 AST 20 U/L (13-39) 06/20/17 04:53 ALT 22 U/L (7-52) 06/20/17 04:53 Alkaline Phosphatase 57 U/L (34-104) 06/20/17 04:53 Total Protein 6.2 gm/dL (6.0-8.3) 06/20/17 04:53 Albumin 3.6 gm/dL (4.2-5.5) L 06/20/17 04:53 Globulin 2.6 gm/dL 06/20/17 04:53 Albumin/Globulin Ratio 1.4 (1.0-1.8) 06/20/17 04:53 Influenza A (Rapid) NEG FOR INF A 06/19/17 17:00 Influenza B (Rapid) NEG FOR INF B 06/19/17 17:00 - Physical Exam Vitals and I&O: Vital Signs Temp 98.4 F 06/21/17 07:38 Pulse 65 06/21/17 07:38 Resp 18 06/21/17 07:38 BP 125/69 06/21/17 07:38 Pulse Ox 93 06/21/17 07:38 Intake & Output 06/20/17 06/21/17 06/21/17 18:59 06:59 18:59 Intake Total 850 50 Output Total 800 625 Balance 50 -575 Weight (lbs) 110.223 kg 100.414 kg Intake: Oral 850 50 Output: Urine 800 625 Other: # Bowel Movements 1 0 Active Medications: Current Medications Acetaminophen/Hydrocodone Bitart ([place] 5mg/325mg) 1 tab PO Q6H PRN PRN Reason: Pain (Moderate) Stop: 08/17/17 00:57 Last Admin: 06/21/17 06:14 Dose: 1 tab Albuterol/Ipratropium (Duoneb Neb) 3 ml HHN Q2H PRN PRN Reason: Wheezing Stop: 08/16/17 20:08 Albuterol/Ipratropium (Duoneb Neb) 3 ml HHN [id number] [facility] Stop: 08/18/17 18:59 Last Admin: 06/21/17 06:47 Dose: 3 ml Aspirin (Ecotrin) 81 mg PO DAILY [facility] Stop: 08/17/17 08:59 Last Admin: 06/21/17 08:22 Dose: 81 mg Benztropine Mesylate (Cogentin) 1 mg PO BID [facility] Stop: 08/17/17 08:59 Last Admin: 06/21/17 08:22 Dose: 1 mg Budesonide (Pulmicort) 0.5 mg HHN BIDRT [facility] Stop: 08/18/17 18:59 Last Admin: 06/21/17 06:47 Dose: 0.5 mg Diphenhydramine HCl (Benadryl) 25 mg PO HS MI Stop: 08/16/17 20:59 Last Admin: 06/20/17 20:24 Dose: 25 mg Levofloxacin (Levaquin Pb) 500 mg in 100 mls @ 100 mls/hr IV Q24HR MI Stop: 08/16/17 20:59 Last Admin: 06/20/17 20:25 Dose: 100 mls/hr Miscellaneous (Probiotic Screen) 1 ea MC PRN PRN PRN Reason: PROTOCOL Stop: 08/18/17 12:10 Olanzapine (Zyprexa) 20 mg PO HS MI PRN Reason: Protocol Stop: 08/16/17 20:59 Last Admin: 06/20/17 20:24 Dose: 20 mg Pantoprazole Sodium (Protonix) 40 mg PO DAILY MI Stop: 08/18/17 17:14 Last Admin: 06/21/17 08:22 Dose: 40 mg Prednisone (Prednisone) 20 mg PO BID [facility] Stop: 08/20/17 16:59 Thiothixene (Navane) 15 mg PO BID MI PRN Reason: Protocol Stop: 08/17/17 08:59 Last Admin: 06/21/17 09:48 Dose: 15 mg General: Alert, Oriented x3, Cooperative HEENT: Atraumatic, PERRLA, EOMI, Mucous membr. moist/pink Neck: Supple, +2 carotid pulse wo bruit Cardiovascular: Regular rate, Normal S1, Normal S2 Lungs: Other (diffuse expiratory wheezing throughout.) Abdomen: Bowel sounds, Soft, Other (no hepatosplenomegaly, bowel sounds present) Extremities: Other (no clubbing, cyanosis, pedal pulses are +2.) Neurological: Normal gait Assessment/Plan - Assessment Assessment: COPD exacerbation. Acute respiratory failure. Bronchiectasis. Psychiatric disorder. DJD. Debility. - Plan Plan: Oxygen. Discharge to [facility]. CPOE done. MAR reconciled. Care plan reviewed and discussed with staff.
--- NOTE | 2017-06-21 09:58 | Discharge Summary ---
General Discharge Summary - Discharge Summary Date of Admission: 06/17/17 Admitting Diagnosis: Shortness of breath. Discharge Date: 06/21/17 Discharge Diagnosis: COPD exacerbation. Acute respiratory failure. Bronchiectasis. Psychiatric disorder. DJD. Debility Laboratory Findings: Laboratory Tests 06/18/17 06/18/17 06/19/17 04:50 04:50 17:00 WBC 6.1 D RBC 4.53 Hgb 15.6 Hct 45.4 MCV 100.2 H MCH 34.3 H MCHC Differential 34.3 RDW 12.5 Plt Count 139 L MPV 7.7 Neutrophils % Lymphocytes % Monocytes % Eosinophils % Basophils % Specimen Source Sample Site pH pCO2 pO2 HCO3 Base Excess O2 Saturation Talib Test Vent Rate Inspired O2 Tidal Volume PEEP Pressure (ins/psv/peep) Critical Value Sodium 139 Potassium 4.5 Chloride 105 Carbon Dioxide 28.2 Anion Gap 10.3 BUN 13 Creatinine 0.8 Est GFR ( Amer) > 60.0 Est GFR (Non-Af Amer) > 60.0 BUN/Creatinine Ratio 16.3 Glucose 126 H Calcium 9.3 Magnesium 2.0 Total Bilirubin 0.7 AST 25 ALT 20 Alkaline Phosphatase 56 Total Protein 6.1 Albumin 3.6 L Globulin 2.5 Albumin/Globulin Ratio 1.4 Influenza A (Rapid) NEG FOR INF A Influenza B (Rapid) NEG FOR INF B 06/20/17 06/20/17 06/20/17 04:53 04:53 09:03 WBC 9.3 D RBC 4.86 Hgb 16.7 Hct 49.1 MCV 101.0 H MCH 34.3 H MCHC Differential 33.9 RDW 12.5 Plt Count 149 L MPV 7.6 Neutrophils % 88.4 H Lymphocytes % 6.6 L Monocytes % 2.8 Eosinophils % 0.0 Basophils % 2.2 H Specimen Source Arterial Sample Site Left Radial pH 7.41 pCO2 47.0 H pO2 53.0 L HCO3 28.0 H Base Excess 4.3 H O2 Saturation 87.0 L Talib Test Positive Vent Rate NA Inspired O2 21 Tidal Volume NA PEEP NA Pressure (ins/psv/peep) NA Critical Value LZHANG Sodium 135 L Potassium 4.4 Chloride 103 Carbon Dioxide 26.5 Anion Gap 9.9 BUN 16 Creatinine 0.7 Est GFR ( Amer) > 60.0 Est GFR (Non-Af Amer) > 60.0 BUN/Creatinine Ratio 22.9 Glucose 141 H Calcium 9.3 Magnesium Total Bilirubin 0.7 AST 20 ALT 22 Alkaline Phosphatase 57 Total Protein 6.2 Albumin 3.6 L Globulin 2.6 Albumin/Globulin Ratio 1.4 Influenza A (Rapid) Influenza B (Rapid) Hospital Course: 52-year-old male presented to emergency room for evaluation of shortness of breath. After being evaluated patient was admitted to hospital for further treatment. Patient was admitted to [facility] floor. Patient was given oxygen, IV antibiotic , nebulizer treatment, pulmonary consultation from Dr. Alexi Fountain, IV steroids were given. Appropriate home medicines were reconciliated. Patient was slowly improving with the treatment plan as prescribed. 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 It was decided that [facility] patient recuperates. Patient is discharged to [facility] today with PO prednisone and other medication as patient was receiving. Patient will be followed by myself at [facility]. At the time of discharge all of his medications are reconciliated. Condition at Discharge: Stable Disposition: Other Care w/in this hosp Home Medications: Home Medication Medication Instructions Recorded Type Albuterol Sulfate [Ventolin Hfa] 1 puff IH Q6HR 06/17/17 History Aspirin [Adult Low Dose Aspirin EC] 81 mg PO DAILY 06/17/17 History Benztropine [Cogentin*] 1 mg PO BID 06/17/17 History Diphenhydramine HCl [Pharbedryl] 25 mg PO HS 06/17/17 History Fluticasone/Salmeterol [Advair 1 puff INH BID 06/17/17 History 250-50 Diskus] Ipratropium [place] [Atrovent Hfa] 2 puff INH BID 06/17/17 History OLANZapine [ZyPREXA] 20 mg PO HS 06/17/17 History Thiothixene [Navane] 5 mg PO BID 06/17/17 History Inpatient Medications: Current Medications Acetaminophen/Hydrocodone Bitart ([place] 5mg/325mg) 1 tab PO Q6H PRN PRN Reason: Pain (Moderate) Stop: 08/17/17 00:57 Last Admin: 06/21/17 06:14 Dose: 1 tab Albuterol/Ipratropium (Duoneb Neb) 3 ml HHN Q2H PRN PRN Reason: Wheezing Stop: 08/16/17 20:08 Albuterol/Ipratropium (Duoneb Neb) 3 ml HHN [id number] MI Stop: 08/18/17 18:59 Last Admin: 06/21/17 06:47 Dose: 3 ml Aspirin (Ecotrin) 81 mg PO DAILY MI Stop: 08/17/17 08:59 Last Admin: 06/21/17 08:22 Dose: 81 mg Benztropine Mesylate (Cogentin) 1 mg PO BID MI Stop: 08/17/17 08:59 Last Admin: 06/21/17 08:22 Dose: 1 mg Budesonide (Pulmicort) 0.5 mg HHN BIDRT MI Stop: 08/18/17 18:59 Last Admin: 06/21/17 06:47 Dose: 0.5 mg Diphenhydramine HCl (Benadryl) 25 mg PO HS MI Stop: 08/16/17 20:59 Last Admin: 06/20/17 20:24 Dose: 25 mg Levofloxacin (Levaquin Pb) 500 mg in 100 mls @ 100 mls/hr IV Q24HR MI Stop: 08/16/17 20:59 Last Admin: 06/20/17 20:25 Dose: 100 mls/hr Miscellaneous (Probiotic Screen) 1 ea MC PRN PRN PRN Reason: PROTOCOL Stop: 08/18/17 12:10 Olanzapine (Zyprexa) 20 mg PO HS MI PRN Reason: Protocol Stop: 08/16/17 20:59 Last Admin: 06/20/17 20:24 Dose: 20 mg Pantoprazole Sodium (Protonix) 40 mg PO DAILY MI Stop: 08/18/17 17:14 Last Admin: 06/21/17 08:22 Dose: 40 mg Prednisone (Deltasone) 20 mg PO BID MI Stop: 08/20/17 16:59 Thiothixene (Navane) 15 mg PO BID MI PRN Reason: Protocol Stop: 08/17/17 08:59 Last Admin: 06/21/17 09:48 Dose: 15 mg Consults and Follow-Up: Jatin Wynne [Family Provider] - not on staff,PCP is [Primary Care Provider] -
== END 2017-06-21 12:15 | DRG 189 ==
LOC: ER 09:47 → MSI 13:12
PROVIDERS: ADMIT Internal Medicine; ATTEND Internal Medicine
DX: J96.01 Acute respiratory failure with hypoxia (principal); F20.9 Schizophrenia, unspecified; Z99.81 Dependence on supplemental oxygen; J44.1 Chronic obstructive pulmonary disease with (acute) exacerbation; F29 Unspecified psychosis not due to a substance or known physiological condition; M19.90 Unspecified osteoarthritis, unspecified site; Z23 Encounter for immunization; Z87.891 Personal history of nicotine dependence; Z93.3 Colostomy status; Z79.51 Long term (current) use of inhaled steroids; Z79.82 Long term (current) use of aspirin
CPT/HCPCS: 36415-UA; 36600-90; 71010-TC; 71250-TC; 80048-TC; 80053-TC; 82803-TC; 83735-TC; 85007-TC; 85025-TC; 85027-TC; 87070; 87804-TC; 93005; 94640; 94760; J1956; J2920; J7030; J7051; Z7610